=== PATIENT | female | born 1965 | race Two or more races ===

== ENCOUNTER 2024-09-30 09:26 | Outpatient (CLI) | payer OTHER | END 2024-09-30 09:40 | disposition home or self-care (01) | LOC: SONOGRAMA 09:26 | PROVIDERS: ATTEND Specialist | DX: D17.1 Benign lipomatous neoplasm of skin and subcutaneous tissue of trunk (principal) ==

== ENCOUNTER 2024-12-01 07:00 | Day surgery (SDC) | payer OTHER ==
[2024-11-25 08:29] LABS: URINE APPEARANCE Cloudy; URINE BILIRRUBIN Negative (NEGATIVE); URINE BLOOD Moderate; URINE COLOR Yellow; URINE GLUCOSE Negative (NEGATIVE); URINE KETONE Negative (NEGATIVE); URINE LEUKOCYTE Small; URINE NITRATE Negative; URINE PROTEIN Negative (NEGATIVE); URINE UROBILINOGEN 0.2 E.U./dl
[2024-11-25 08:33] LABS: URINE BACTERIA 885.6 uL (0.0-1933); URINE EPITHELIAL CELLS 74.4 uL (0.0-38.8); URINE RBC 156.4 uL (0.0-20.8); URINE WBC 37.8 uL (0.0-23.2)
[2024-11-25 08:36] VITALS: BP 150/90
[2024-11-25 08:49] LABS: BASO % 0.7 % (0.1-1.2); EOS # 0.26 (0.04-0.54); EOS % 3.2 % (0.7-7.0); LYMPH # 2.50 (1.18-3.74); LYMPH % 30.6 % (19.3-53.1); MEAN PLATELET VOLUME 9.60 fl (9.4-12.4); MONO # 0.46 (0.24-0.82); MONO % 5.6 % (4.7-12.5); NEUT # 4.87 (1.56-6.13); NEUT % 59.7 % (34.0-71.1); RED CELL DISTRIBUTION WIDTH 13.5 % (11.6-14.4)
[2024-11-25 08:52] LABS: URINE CAST 0.00 uL (0.0-1.40)
[2024-11-25 09:10] LABS: INR 1.0
[2024-11-25 10:00] LABS: ALT/SGPT 24.0 U/L (12-78); AST/SGOT 12.0 U/L (15-37); BILIRUBIN TOTAL 1.1 mg/dL (0.3-1.2); BUN CREA RATIO 21.0 (7.0-25.0); CREATININE SERUM 0.68 mg/dL (0.55-1.02); GFR 88.56; GLOBULINA 3.4 G/DL (2.4-3.5); GLUCOSE FASTING 117.0 mg/dL (65-100); OSMOLALITY SERUM 290.0 MOSM/KG (275-295)
[~2024-12-01] VITALS: Ht 162.6 cm; Wt 99.8 kg
[~2024-12-01 07:00] MED LIST: ARBLI10 MG/1 ML; LASIX20 MG PO; LIPITOR
[2024-12-01] MEDS ORDERED: CEFAZOLIN SODIUM 1,000 MG VIAL ONE ×2 (07:28→11:26)
[2024-12-01] MEDS ORDERED: LIDOCAINE HCL 1%/EPINEPHRINE 20ML VIAL IJ ONE (09:18)
[2024-12-01] MEDS ORDERED: LIDOCAINE HCL 1% 10ML VIAL ONE ×2 (09:18→10:07)
[2024-12-01] MEDS ORDERED: LIDOCAINE HCL 1%/EPINEPHRINE 10 ML VIAL IJ ONE (10:07)
[2024-12-01] MEDS ORDERED: CEFAZOLIN SODIUM 1,000 MG VIAL IV SCH (11:00)
== END 2024-12-01 12:40 | disposition home or self-care (01) ==
LOC: CIR.AMB 07:00
PROVIDERS: ATTEND Specialist
DX: D17.1 Benign lipomatous neoplasm of skin and subcutaneous tissue of trunk (principal)